=== PATIENT | female | born 1985 | race Hispanic/Latino ===

== ENCOUNTER 2017-03-11 01:30 | Emergency (ER) | payer SELFPAY | END 2017-03-11 02:10 | disposition left against medical advice (07) | LOC: ED 01:30 | DX: R06.02 Shortness of breath (principal); Z53.21 Procedure and treatment not carried out due to patient leaving prior to being seen by health care provider ==

== ENCOUNTER 2017-08-20 02:45 | Inpatient (IN) | payer MEDICARE ==
[2017-08-20] MEDS ORDERED: NACL 0.9% 500 ML 500 ML IV ONE (03:06)
[2017-08-20 03:47] LABS: Basophils # (Auto) 0.1 K/mm3 (0.0-0.1); Basophils % (Auto) 0.9 % (0.0-1.8); Eosinophils # (Auto) 0.2 K/mm3 (0.0-0.4); Eosinophils % (Auto) 2.6 % (0.0-4.3); Hematocrit 42.6 % (30.3-42.9); Hemoglobin 14.4 gm/dl (10.1-14.3); Lymphocytes # (Auto) 1.5 K/mm3 (1.2-5.4); Lymphocytes % (Auto) 19.4 % (13.4-35.0); Mean Corpuscular HGB Conc 34 % (30-34); Mean Corpuscular Hemoglobin 31 pg (28-32); Mean Corpuscular Volume 91 fl (79-97); Monocytes # (Auto) 0.7 K/mm3 (0.0-0.8); Monocytes % (Auto) 9.2 % (0.0-7.3); Platelet Count 160 K/mm3 (140-440); Red Blood Count 4.68 M/mm3 (3.65-5.03); Red Cell Distribution Width 13.7 % (13.2-15.2)
[2017-08-20 04:03] LABS: INR 0.89 (0.87-1.13)
[2017-08-20 04:04] LABS: Alanine Aminotransferase 13 units/L (7-56); Albumin 4.4 g/dL (3.9-5); BUN/Creatinine Ratio 20; Blood Urea Nitrogen 20 mg/dL (7-17); Calcium 8.8 mg/dL (8.4-10.2); Hemolysis Index 10
--- NOTE | 2017-08-20 04:44 | XRay Report ---
FINAL REPORT EXAM: XR CHEST 1V AP HISTORY: possible Sepsis TECHNIQUE: AP portable view(s) of the chest obtained. PRIORS: None. FINDINGS: No mediastinal shift. Cardiac silhouette is not enlarged. No pneumothorax, effusion, or focal pulmonary opacity identified. No acute skeletal findings. IMPRESSION: No acute pulmonary finding identified.
[2017-08-20 04:52] LABS: Bilirubin,Urine NEG (Negative); Blood,Urine NEG (Negative); Color,Urine Yellow (Yellow); Mucus,Urine FEW /HPF; Protein,Urine <15 mg/dL mg/dL (Negative); Urobilinogen,Urine < 2.0 mg/dL (<2.0); WBC,Urine < 1.0 /HPF (0.0-6.0)
[2017-08-20] MEDS ORDERED: ZOFRAN IV ONE (07:11)
[2017-08-20] MEDS ORDERED: DILAUDID IV ONE ×3 (07:11→09:22)
--- NOTE | 2017-08-20 07:13 | Emergency Department Report ---
ED Abdominal Pain HPI - General Chief Complaint: Fever Stated Complaint: ABD PAIN Time Seen by Provider: 08/20/17 07:08 Source: patient Mode of arrival: Ambulatory Limitations: No Limitations - History of Present Illness Initial Comments: is a 31-year-old female presents to emergency room with right lower quadrant pain and fever and chills 2 days. Patient is a kidney transplant that took place on May 27. Patient states the area where they transported the kidney is hurting and patient has noticed decreased urinary output. Patient states that she has been taking Tylenol for the fever which will respond patient states she noted a fever at home at 101.2 orally. Patient complains of nausea and vomiting that is not being controlled by Zofran. Patient also complains of dysuria and urinary frequency. Patient denies chest pain and shortness of breath. Patient states the pain is a 10 out of 10. Patient states the pain is worse with movement and palpation. Patient states the pain is better with rest. MD Complaint: abdominal pain -: Sudden Location: RLQ Radiation: none Migration to: no migration Severity: severe Severity scale (0 -10): 10 Quality: stabbing Consistency: constant Improves With: rest Worsens With: vomiting, movement Context: recent surgery/procedure Associated Symptoms: nausea, vomiting, fever, chills. denies: diarrhea, constipation, dysuria, hematemesis, hematochezia, melena, hematuria, anorexia, syncope Treatments Prior to Arrival: other (Tylenol) - Related Data LMP (females 10-50): 3 weeks Home Medications Medication Instructions Recorded Confirmed Last Taken Biotin 5,000 mcg PO BID 08/20/17 08/20/17 Unknown Glycopyrrolate [Robinul Forte] 2 mg PO DAILY 08/20/17 08/20/17 Unknown Multivit/Folic Acid/Vit K1 1 tab PO DAILY 08/20/17 08/20/17 Unknown [One-A-Day Women's 50 Plus Tab] Mycophenolate [Cellcept] 500 mg PO BID 08/20/17 08/20/17 Unknown Pantoprazole [Protonix TAB] 40 mg PO DAILY 08/20/17 08/20/17 Unknown Tacrolimus [Prograf] 2 mg PO BID 08/20/17 08/20/17 Unknown predniSONE [Deltasone] 5 mg PO QDAY 08/20/17 08/20/17 08/19/17 5 Allergies Allergy/AdvReac Type Severity Reaction Status Date / Time aspirin Allergy Diarrhea Verified 08/20/17 02:53 Bleach (Sodium Hypochlorite) Allergy Diarrhea Verified 08/20/17 02:53 Iodinated Contrast- Oral and Allergy Dizziness Verified 08/20/17 02:53 IV Dye ketorolac [From Toradol] Allergy Dizziness Verified 08/20/17 02:53 linezolid [From Zyvox] Allergy Angioedema Verified 08/20/17 02:53 vancomycin Allergy Anaphylaxis Verified 08/20/17 02:53 ED Review of Systems ROS: Stated complaint: ABD PAIN Other details as noted in HPI Constitutional: chills, fever, malaise Eyes: denies: eye pain, eye discharge, vision change ENT: denies: ear pain, throat pain Respiratory: denies: cough, shortness of breath, wheezing Cardiovascular: denies: chest pain, palpitations Endocrine: no symptoms reported Gastrointestinal: abdominal pain, nausea, vomiting. denies: diarrhea Genitourinary: urgency, dysuria. denies: discharge Musculoskeletal: denies: back pain, joint swelling, arthralgia Skin: denies: rash, lesions Neurological: denies: headache, weakness, paresthesias Psychiatric: denies: anxiety, depression Hematological/Lymphatic: denies: easy bleeding, easy bruising ED Past Medical Hx - Past Medical History Previous Medical History?: Yes Hx Renal Disease: Yes - Surgical History Past Surgical History?: Yes Additional Surgical History: kidney transplant 05/28/2015 - Family History Family history: hypertension - Social History Smoking Status: Never Smoker Substance Use Type: None - Medications Home Medications: Home Medications Medication Instructions Recorded Confirmed Last Taken Type Biotin 5,000 mcg PO BID 08/20/17 08/20/17 Unknown History Glycopyrrolate [Robinul Forte] 2 mg PO DAILY 08/20/17 08/20/17 Unknown History Multivit/Folic Acid/Vit K1 1 tab PO DAILY 08/20/17 08/20/17 Unknown History [One-A-Day Women's 50 Plus Tab] Mycophenolate [Cellcept] 500 mg PO BID 08/20/17 08/20/17 Unknown History Pantoprazole [Protonix TAB] 40 mg PO DAILY 08/20/17 08/20/17 Unknown History Tacrolimus [Prograf] 2 mg PO BID 08/20/17 08/20/17 Unknown History predniSONE [Deltasone] 5 mg PO QDAY 08/20/17 08/20/17 08/19/17 History 5 ED Physical Exam - General Limitations: No Limitations General appearance: alert, in no apparent distress - Head Head exam: Present: atraumatic, normocephalic - Eye Eye exam: Present: normal appearance - ENT ENT exam: Present: mucous membranes moist - Neck Neck exam: Present: normal inspection - Respiratory Respiratory exam: Present: normal lung sounds bilaterally. Absent: respiratory distress - Cardiovascular Cardiovascular Exam: Present: regular rate, normal rhythm. Absent: systolic murmur, diastolic murmur, rubs, gallop - GI/Abdominal GI/Abdominal exam: Present: soft, tenderness (right periumbilical and right lower quadrant tenderness), normal bowel sounds - Extremities Exam Extremities exam: Present: normal inspection - Back Exam Back exam: Present: normal inspection - Neurological Exam Neurological exam: Present: alert, oriented X3 - Psychiatric Psychiatric exam: Present: normal affect, normal mood - Skin Skin exam: Present: warm, dry, intact, normal color. Absent: rash ED Course Vital Signs 08/20/17 08/20/17 08/20/17 02:54 07:00 07:16 Temperature 97.9 F Pulse Rate 90 Respiratory 16 Rate Blood Pressure 155/90 141/89 123/57 Blood Pressure [Left] O2 Sat by Pulse 99 98 100 Oximetry 08/20/17 08/20/17 08/20/17 07:20 07:30 07:37 Temperature 97.8 F Pulse Rate 77 85 Respiratory 17 17 Rate Blood Pressure 134/59 Blood Pressure 141/89 [Left] O2 Sat by Pulse 99 100 95 Oximetry 08/20/17 08/20/17 08/20/17 07:53 08:00 08:16 Temperature Pulse Rate Respiratory Rate Blood Pressure 154/93 132/90 132/90 Blood Pressure [Left] O2 Sat by Pulse 81 L 94 98 Oximetry 08/20/17 08/20/17 08/20/17 08:30 08:56 09:00 Temperature Pulse Rate Respiratory Rate Blood Pressure 154/93 132/90 121/82 Blood Pressure [Left] O2 Sat by Pulse 95 96 Oximetry 08/20/17 08/20/17 08/20/17 09:09 09:16 09:30 Temperature Pulse Rate 77 Respiratory Rate Blood Pressure 121/82 121/82 Blood Pressure [Left] O2 Sat by Pulse 95 97 Oximetry 08/20/17 08/20/17 08/20/17 09:46 10:00 10:10 Temperature Pulse Rate Respiratory Rate Blood Pressure 121/82 120/74 120/74 Blood Pressure [Left] O2 Sat by Pulse 97 87 93 Oximetry 08/20/17 08/20/17 08/20/17 10:13 10:17 10:20 Temperature 97.9 F Pulse Rate 65 Respiratory Rate Blood Pressure 120/74 Blood Pressure [Left] O2 Sat by Pulse 95 98 Oximetry 08/20/17 08/20/17 08/20/17 10:36 10:40 11:01 Temperature Pulse Rate Respiratory Rate Blood Pressure 120/74 120/74 Blood Pressure [Left] O2 Sat by Pulse 97 97 91 Oximetry - Reevaluation(s) Reevaluation #1: Hospitalist contacted for admission. Hospitalist to assume care of the patient. Discussed plan of care with patient and patient agrees to admission and plan of care. Discussed all results with patient. Due to the fact the patient has intractable abdominal pain and we can find a source for fever, i will admit patient to the hospitalist service for further evaluation and treatment. 08/20/17 09:23 ED Medical Decision Making - Lab Data Result diagrams: 08/20/17 03:31 08/20/17 03:31 - Radiology Data Radiology results: report reviewed negative ct abd - Medical Decision Making Patient's 31-year-old female who presents to emergency room with complaints of abdominal pain and fever and chills. CT negative. Will admit patient for intractable abdominal pain and to identify the source of her fever. Will give patient a Rocephin injection due to the fact that she's had a long history of Escherichia coli UTIs. Will admit patient to the hospitalist service for further evaluation and treatment - Differential Diagnosis abd pain. uti. enteritis Critical care attestation.: If time is entered above; I have spent that time in minutes in the direct care of this critically ill patient, excluding procedure time. ED Disposition Clinical Impression: Dysuria, Intractable abdominal pain Abdominal pain Qualifiers: Abdominal location: right lower quadrant Qualified Code(s): R10.31 - Right lower quadrant pain Fever Qualifiers: Fever type: unspecified Qualified Code(s): R50.9 - Fever, unspecified UTI (urinary tract infection) Qualifiers: Urinary tract infection type: acute cystitis Hematuria presence: without hematuria Qualified Code(s): N30.00 - Acute cystitis without hematuria Disposition: OP ADMIT IP TO THIS HOSP Is pt being admited?: Yes Does the pt Need Aspirin: No Condition: Serious Time of Disposition: 09:17
[2017-08-20] MEDS ORDERED: BENADRYL ONE (07:23)
[2017-08-20] MEDS ORDERED: BENADRYL IV ONE (07:26)
--- NOTE | 2017-08-20 08:34 | Cat Scan Report ---
CT ABDOMEN PELVIS WITHOUT CONTRAST: HISTORY: abdominal pain. COMPARISON: none. TECHNIQUE: Helical CT in 1.25mm intervals without IV contrast. Sagittal and coronal reconstructions. FINDINGS: Lung bases: Normal. Liver: Normal. Biliary system: Cholecystectomy has been performed. No biliary dilatation. Pancreas: Normal. Spleen: The spleen is borderline in size measuring 13 cm in length. There is a 3.9 x 2.1 cm slightly hyperdense area in the superior spleen of uncertain etiology. Overall this has a chronic appearance. The remainder of the spleen is unremarkable. Kidneys/ureters/bladder: The kake left kidney is severely atrophic measuring 6 cm in length. The right kidney is not confidently identified which could represent surgical removal, agenesis or severe atrophy. There appears to be a renal transplant in the right side of the pelvis which appears unremarkable on noncontrast CT. The transplant kidney measures 11.9 cm in length. No focal renal lesion, hydronephrosis or perinephric fluid is detected. The ureters and bladder are unremarkable. Adrenal glands: Normal. Aorta: Normal. Intestines: Within normal limits given no oral contrast was administered. Gastric sleeve surgical changes are suspected, correlate with surgical history. Appendix: Normal. Pelvic viscera: The uterus and right adnexa are unremarkable. A 4.6 cm simple appearing left ovarian cyst is identified. Ascites: None. Adenopathy: None. Musculoskeletal: Normal. IMPRESSION: No acute inflammatory process identified. Borderline splenomegaly. Hyperdense area near the superior tip of the spleen of uncertain etiology, I. suspect a benign etiology. Chronic renal parenchymal disease. The renal transplant in the right pelvis is unremarkable noncontrast CT. Surgical changes as described. 4.6 cm left ovarian cyst.
[2017-08-20] MEDS ORDERED: NACL 0.9% 1000 ML 1,000 ML ONE (08:54)
[2017-08-20] MEDS ORDERED: NACL 0.9% 1000 ML 1,000 ML IV ONE (08:57)
[2017-08-20] MEDS ORDERED: ROCEPHIN/NS 1 GM/50 ML 1 GM/50 ML BAG IV ONE (09:20)
[2017-08-20] MEDS ORDERED: cefTRIAXone 1 GM in NACL 0.9% 20 ML IV NR (09:30)
[2017-08-20] MEDS ORDERED: Fluarix Quad 2017-2018(36 MOS+ IM ONE (12:43)
[2017-08-20 15:14] VITALS: BP 117/79
--- NOTE | 2017-08-20 16:14 | Discharge Summary ---
Providers - Providers Date of Admission: 08/20/17 09:26 Attending physician: JOSE F TOVAR MD Primary care physician: ROSEMARY HOLCOMB Hospitalization Condition: Serious Exam - Constitutional Vitals: Temp Pulse Resp BP Pulse Ox 97.9 F 59 L 14 117/79 90 08/20/17 10:13 08/20/17 15:00 08/20/17 15:00 08/20/17 15:00 08/20/17 11:24 Plan Follow up with: ROSEMARY HOLCOMB MD [Primary Care Provider] - 3-5 Days
[2017-08-20] MEDS ORDERED: BENADRYL PO PRN (17:16)
[2017-08-20] MEDS ORDERED: TYLENOL PO PRN (17:16)
[2017-08-20] MEDS ORDERED: PERCOCET 5/325 PO PRN (17:16)
[2017-08-20] MEDS ORDERED: ZOFRAN IV PRN (17:16)
[2017-08-20] MEDS ORDERED: SODIUM CHLORIDE FLUSH SYRINGE 10 ML IV PRN (17:16)
[2017-08-20] MEDS ORDERED: CELLCEPT PO SCH (22:00)
[2017-08-20] MEDS ORDERED: NON-FORMULARY (Biotin [Biotin] 5,000 MCG) PO SCH (22:00)
[2017-08-20] MEDS ORDERED: PROGRAF PO SCH (22:00)
[2017-08-20] MEDS ORDERED: SODIUM CHLORIDE FLUSH SYRINGE 10 ML IV SCH (22:00)
[2017-08-21] MEDS ORDERED: FOLIC ACID PO SCH (10:00)
[2017-08-21] MEDS ORDERED: ROBINUL PO SCH (10:00)
[2017-08-21] MEDS ORDERED: MULTIVIT PO SCH (10:00)
[2017-08-21] MEDS ORDERED: THERAGRAN Tab PO SCH (10:00)
[2017-08-21] MEDS ORDERED: PROTONIX PO SCH (10:00)
[2017-08-21] MEDS ORDERED: GLYCOPYRROLATE 2 MG PO SCH (10:00)
[2017-08-21] MEDS ORDERED: VIT K1 PO SCH (10:00)
[2017-08-21] MEDS ORDERED: DELTASONE PO SCH (10:00)
[2017-08-21] MEDS ORDERED: Fluarix Quad 2017-2018(36 MOS+ IM ONE (12:00)
== END 2017-08-20 21:30 | disposition left against medical advice (07) | DRG 690 ==
LOC: ED 02:45 → 3A 09:26
PROVIDERS: ADMIT Internal Medicine; ATTEND Internal Medicine
DX: N39.0 Urinary tract infection, site not specified (principal); Z94.0 Kidney transplant status; Z53.21 Procedure and treatment not carried out due to patient leaving prior to being seen by health care provider; Z82.49 Family history of ischemic heart disease and other diseases of the circulatory system
CPT/HCPCS: 36415; 71045; 74176; 80053; 81001; 82140; 82805; 84703; 85025; 85610; 86850; 86870; 86900; 86901; 87040; 87086; 90686; 93005; 93010; 96365; 96375; 96376; J0696; J1170; J1200; J2405; J7030; J7040; J7507

== ENCOUNTER 2019-05-25 01:08 | Emergency (ER) | payer MEDICARE ==
[2019-05-25 01:52] LABS: Basophils # (Auto) 0.1 K/mm3 (0.0-0.1); Basophils % (Auto) 1.2 % (0.0-1.8); Eosinophils # (Auto) 0.2 K/mm3 (0.0-0.4); Eosinophils % (Auto) 3.9 % (0.0-4.3); Hematocrit 37.9 % (30.3-42.9); Hemoglobin 12.8 gm/dl (10.1-14.3); Lymphocytes % (Auto) 20.8 % (13.4-35.0); Mean Corpuscular HGB Conc 34 % (30-34); Mean Corpuscular Volume 99 fl (79-97); Monocytes # (Auto) 0.4 K/mm3 (0.0-0.8); Monocytes % (Auto) 9.6 % (0.0-7.3); Platelet Count 158 K/mm3 (140-440); Red Blood Count 3.83 M/mm3 (3.65-5.03); Red Cell Distribution Width 15.3 % (13.2-15.2)
[2019-05-25 02:15] LABS: Albumin 4.7 g/dL (3.9-5); Calcium 8.5 mg/dL (8.4-10.2)
[2019-05-25 03:18] LABS: Bacteria,Urine 1+ /HPF (Negative); Bilirubin,Urine NEG (Negative); Blood,Urine NEG (Negative); Color,Urine Yellow (Yellow); Protein,Urine <15 mg/dL mg/dL (Negative); Urobilinogen,Urine < 2.0 mg/dL (<2.0); WBC,Urine < 1.0 /HPF (0.0-6.0)
[2019-05-25] MEDS ORDERED: SODIUM CHLORIDE 0.9% 1000 ML 1,000 ML IV ONE (03:48)
[2019-05-25] MEDS ORDERED: HYDROmorphone 1 MG/1 ML INJ IV ONE ×2 (04:01→05:43)
--- NOTE | 2019-05-25 04:01 | Emergency Department Report ---
ED Abdominal Pain HPI - General Chief Complaint: Abdominal Pain Stated Complaint: LOWER ABD PAIN, NAUSEA, Time Seen by Provider: 05/25/19 03:40 Source: patient Mode of arrival: Ambulatory Limitations: No Limitations - History of Present Illness Initial Comments: Patient is a 33-year-old female that presents emergency room with complaints of abdominal pain. Patient states her abdominal pain is her right lower and right upper quadrant. Patient states abdominal pain is a 6 out of 10. Patient states she is also had nausea vomiting. Pain states she is taken multiple doses Zofran. Patient denies fever and chills. Patient states she has a history of a kidney transplant in 2016. Patient denies urinary symptoms. Patient's last menstrual period was 2 years ago.. Patient states she does not ovulate. 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 MD Complaint: abdominal pain -: Sudden Location: RUQ, RLQ Radiation: R flank Severity scale (0 -10): 6 Quality: sharp Consistency: constant Improves With: rest Worsens With: movement Associated Symptoms: nausea, vomiting. denies: diarrhea, fever, chills, constipation, dysuria, hematemesis, hematochezia, melena, hematuria, syncope - Related Data Home Medications Medication Instructions Recorded Confirmed Last Taken Biotin [Biotin 5,000 rapdis] 5,000 mcg PO BID 08/20/17 08/20/17 Unknown Glycopyrrolate [Robinul Forte] 2 mg PO DAILY 08/20/17 08/20/17 Unknown Multivit/Folic Acid/Vit K1 1 tab PO DAILY 08/20/17 08/20/17 Unknown [One-A-Day Women's 50 Plus Tab] Mycophenolate [Cellcept] 500 mg PO BID 08/20/17 08/20/17 Unknown Pantoprazole [Protonix TAB] 40 mg PO DAILY 08/20/17 08/20/17 Unknown Tacrolimus [Prograf] 2 mg PO BID 08/20/17 08/20/17 Unknown predniSONE [Deltasone] 5 mg PO QDAY 08/20/17 08/20/17 08/19/17 5 Previous Rx's Medication Instructions Recorded Last Taken Type Ondansetron [Zofran Odt] 4 mg PO Q8HR PRN #30 tab.rapdis 05/25/19 Unknown Rx Allergies Allergy/AdvReac Type Severity Reaction Status Date / Time aspirin Allergy Diarrhea Verified 08/20/17 02:53 Bleach (Sodium Hypochlorite) Allergy Diarrhea Verified 08/20/17 02:53 Iodinated Contrast Media Allergy Dizziness Verified 08/20/17 02:53 ketorolac [From Toradol] Allergy Dizziness Verified 08/20/17 02:53 linezolid [From Zyvox] Allergy Angioedema Verified 08/20/17 02:53 vancomycin Allergy Anaphylaxis Verified 08/20/17 02:53 NSAIDS (Non-Steroidal AdvReac Unknown Verified 05/25/19 01:12 Anti-Inflamma ED Review of Systems ROS: Stated complaint: LOWER ABD PAIN, NAUSEA, AND CHILLS Other details as noted in HPI Constitutional: denies: chills, fever Eyes: denies: eye pain, eye discharge, vision change ENT: denies: ear pain, throat pain Respiratory: denies: cough, shortness of breath, wheezing Cardiovascular: denies: chest pain, palpitations Endocrine: no symptoms reported Gastrointestinal: abdominal pain, nausea, vomiting. denies: diarrhea Genitourinary: denies: urgency, dysuria, discharge Musculoskeletal: denies: back pain, joint swelling, arthralgia Skin: denies: rash, lesions Neurological: denies: headache, weakness, paresthesias Psychiatric: denies: anxiety, depression Hematological/Lymphatic: denies: easy bleeding, easy bruising ED Past Medical Hx - Past Medical History Previous Medical History?: Yes Hx Deep Vein Thrombosis: Yes (2012) Hx Renal Disease: Yes (kidney transplant- born with 1 kidney) Hx COPD: No Hx HIV: No - Surgical History Past Surgical History?: Yes Additional Surgical History: kidney transplant 05/28/2015. tonsils and adnoids removed, gastric sleeve, parathyroidectomy, - Family History Family history: no significant - Social History Smoking Status: Never Smoker Substance Use Type: None - Medications Home Medications: Home Medications Medication Instructions Recorded Confirmed Last Taken Type Biotin [Biotin 5,000 rapdis] 5,000 mcg PO BID 08/20/17 08/20/17 Unknown History Glycopyrrolate [Robinul Forte] 2 mg PO DAILY 08/20/17 08/20/17 Unknown History Multivit/Folic Acid/Vit K1 1 tab PO DAILY 08/20/17 08/20/17 Unknown History [One-A-Day Women's 50 Plus Tab] Mycophenolate [Cellcept] 500 mg PO BID 08/20/17 08/20/17 Unknown History Pantoprazole [Protonix TAB] 40 mg PO DAILY 08/20/17 08/20/17 Unknown History Tacrolimus [Prograf] 2 mg PO BID 08/20/17 08/20/17 Unknown History predniSONE [Deltasone] 5 mg PO QDAY 08/20/17 08/20/17 08/19/17 History 5 Ondansetron [Zofran Odt] 4 mg PO Q8HR PRN #30 tab.rapdis 05/25/19 Unknown Rx ED Physical Exam - General Limitations: No Limitations General appearance: alert, in no apparent distress - Head Head exam: Present: atraumatic, normocephalic - Eye Eye exam: Present: normal appearance - ENT ENT exam: Present: mucous membranes moist - Neck Neck exam: Present: normal inspection - Respiratory Respiratory exam: Present: normal lung sounds bilaterally. Absent: respiratory distress, wheezes, rales - Cardiovascular Cardiovascular Exam: Present: regular rate, normal rhythm. Absent: systolic murmur, diastolic murmur, rubs, gallop - GI/Abdominal GI/Abdominal exam: Present: soft, tenderness (Right upper and right lower quadrant tenderness.), normal bowel sounds. Absent: distended, guarding, rebound - Extremities Exam Extremities exam: Present: normal inspection - Back Exam Back exam: Present: normal inspection - Neurological Exam Neurological exam: Present: alert, oriented X3 - Psychiatric Psychiatric exam: Present: normal affect, normal mood - Skin Skin exam: Present: warm, dry, intact, normal color. Absent: rash ED Course Vital Signs 05/25/19 05/25/19 01:12 01:21 Temperature 98.1 F Pulse Rate 94 H Respiratory 18 18 Rate Blood Pressure 128/76 O2 Sat by Pulse 98 99 Oximetry - Reevaluation(s) Reevaluation #1: Patient is difficult stick due to her multiple IVs in the past. Patient will have a left EJ placed. See procedure notes. 05/25/19 04:15 Reevaluation #2: Patient states her pain is better. Patient denies nausea vomiting. 05/25/19 05:21 Reevaluation #3: Patient states the pain started to increase. Patient will be given another dose of Dilaudid. Patient denies nausea/vomiting. 05/25/19 05:39 Reevaluation #4: Patient states the pain is gone. Patient denies nausea vomiting. I discussed all results and clinical findings with patient. I discussed plan of care with patient. Patient agrees with plan of care. Patient is stable for discharge. Patient will be discharged home. Patient given discharge instruct ions. Patient voiced understanding of discharge instructions. 05/25/19 05:54 - EJ/Peripheral Line Neck L Time Out Performed: Yes Indications: nurses unable to establis Skin Cleansed in Sterile Fashion: Yes Size: 22 Dressing Placed: Tegaderm, tape Patient Tolerated Procedure: well, no complications ED Medical Decision Making - Lab Data Result diagrams: 05/25/19 01:40 05/25/19 01:40 - Radiology Data Radiology results: report reviewed CT ABDOMEN AND PELVIS WITHOUT CONTRAST INDICATION / CLINICAL INFORMATION: R.L.Q. abd pain x 2 days. Hx of kidney transplant in 2016.. TECHNIQUE: Axial CT images were obtained through the abdomen and pelvis without IV contrast. All CT scans at this location are performed using CT dose reduction for ALARA by means of automated exposure control. COMPARISON: CT dated 08/20/17 FINDINGS: LOWER CHEST: No significant abnormality. LIVER: No significant abnormality. GALLBLADDER: Surgically absent. BILE DUCTS: No significant abnormality. PANCREAS: No significant abnormality. SPLEEN: Small calcified area at the superior pole of the spleen is unchanged. ADRENALS: No significant abnormality. RIGHT KIDNEY and URETER: Absent or atrophic, unchanged. Right pelvic transplant kidney shows no acute abnormality. No hydronephrosis. No stones. LEFT KIDNEY and URETER: Atrophic, unchanged. STOMACH and SMALL BOWEL: Gastric stapling is unchanged. No small bowel abnormality. COLON: No significant abnormality. APPENDIX: No significant abnormality. PERITONEUM: No free fluid. No free air. No fluid collection. LYMPH NODES: No significant adenopathy. AORTA and ARTERIES: No significant abnormality. IVC and VEINS: No significant abnormality. URINARY BLADDER: No significant abnormality. REPRODUCTIVE ORGANS: Bilateral ovarian cysts which appear simple. Right ovarian cyst measures 4 cm. ADDITIONAL FINDINGS: Abdominal wall varices are unchanged. SKELETAL SYSTEM: No significant abnormality. IMPRESSION: 1. No inflammatory process or bowel obstruction. 2. Right lower quadrant renal transplant shows no acute abnormality. 3. Bilateral ovarian cysts. No routine follow-up is needed. - Medical Decision Making Patient is a 33-year-old female presents emergency room with complaints of abdominal pain and nausea vomiting. Patient responded well to treatment. Patient given IV fluids and Dilaudid and Zofran. Patient did not have any nausea or vomiting in the ER. Patient's clinical findings are consistent with gastroenteritis and nausea vomiting. Patient had a CT done and shows no acute findings. Patient found to have bilateral ovarian cyst. 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 Patient instructed to take Tylenol as needed. Patient given a prescription for Zofran. Patient's labs are unremarkable. - Differential Diagnosis Gastroenteritis, pyelonephritis, appendicitis, gallbladder pain Critical care attestation.: If time is entered above; I have spent that time in minutes in the direct care of this critically ill patient, excluding procedure time. ED Disposition Clinical Impression: Gastroenteritis, Dehydration Abdominal pain Qualifiers: Abdominal location: right lower quadrant Qualified Code(s): R10.31 - Right lower quadrant pain Nausea & vomiting Qualifiers: Vomiting type: unspecified Vomiting Intractability: non-intractable Qualified Code(s): R11.2 - Nausea with vomiting, unspecified Disposition: TO HOME OR SELFCARE Is pt being admited?: No Does the pt Need Aspirin: No Condition: Stable Instructions: Traveler's Diarrhea (ED), Gastroenteritis (ED), Acute Nausea and Vomiting (ED), Abdominal Pain (ED) Additional Instructions: Patient to follow-up with primary care in 2 to 3 days. Patient to follow-up w ith [facility] al[facility]man in 2 to 3 days. Patient to rest. Patient to increase water. Patient to eat a brat diet. patient to take Tylenol as needed for pain. Patient to take meds as directed. Patient to return to the ER if condition worsens, changes or new symptoms arise. Prescriptions: Ondansetron [Zofran Odt] 4 mg PO Q8HR PRN #30 tab.rapdis PRN Reason: Nausea And Vomiting Referrals: PRIMARY CARE,MD [Primary Care Provider] - 2-3 Days Time of Disposition: 05:23
[2019-05-25] MEDS ORDERED: ONDANSETRON 4 MG/2 ML INJ IV ONE (04:16)
[2019-05-25] MEDS ORDERED: diphenhydrAMINE 50 MG/ML VIAL IV ONE ×2 (04:49→05:43)
--- NOTE | 2019-05-25 04:50 | Cat Scan Report ---
CT ABDOMEN AND PELVIS WITHOUT CONTRAST INDICATION / CLINICAL INFORMATION: R.L.Q. abd pain x 2 days. Hx of kidney transplant in 2016.. TECHNIQUE: Axial CT images were obtained through the abdomen and pelvis without IV contrast. All CT scans at [facility] location are performed using CT dose reduction for ALARA by means of automated exposure control. COMPARISON: CT dated 08/20/17 FINDINGS: LOWER CHEST: No significant abnormality. LIVER: No significant abnormality. GALLBLADDER: Surgically absent. BILE DUCTS: No significant abnormality. PANCREAS: No significant abnormality. SPLEEN: Small calcified area at the superior pole of the spleen is unchanged. ADRENALS: No significant abnormality. RIGHT KIDNEY and URETER: Absent or atrophic, unchanged. Right pelvic transplant kidney shows no acute abnormality. No hydronephrosis. No stones. LEFT KIDNEY and URETER: Atrophic, unchanged. STOMACH and SMALL BOWEL: Gastric stapling is unchanged. No small bowel abnormality. COLON: No significant abnormality. APPENDIX: No significant abnormality. PERITONEUM: No free fluid. No free air. No fluid collection. LYMPH NODES: No significant adenopathy. AORTA and ARTERIES: No significant abnormality. IVC and VEINS: No significant abnormality. URINARY BLADDER: No significant abnormality. REPRODUCTIVE ORGANS: Bilateral ovarian cysts which appear simple. Right ovarian cyst measures 4 cm. ADDITIONAL FINDINGS: Abdominal wall varices are unchanged. SKELETAL SYSTEM: No significant abnormality. IMPRESSION: 1. No inflammatory process or bowel obstruction. 2. Right lower quadrant renal transplant shows no acute abnormality. 3. Bilateral ovarian cysts. No routine follow-up is needed. Signer Name: Keyonna Malagon MD Signed: 05/25/2019 4:45 AM Workstation Name: [id number]
[2019-05-25 06:41] VITALS: BP 115/85
== END 2019-05-25 06:40 | disposition home or self-care (01) ==
LOC: ED 01:08
DX: K52.9 Noninfective gastroenteritis and colitis, unspecified (principal)
CPT/HCPCS: 36415; 74176; 80053; 81001; 85025; 96361; 96374; 96375; 96376; 99284; J1170; J1200; J2405; J7030

== ENCOUNTER 2021-04-28 03:58 | Emergency (ER) | payer MEDICARE ==
[2021-04-28] MEDS ORDERED: PROCHLORPERAZINE EDISYLATE 10 MG/2 ML VIAL IV ONE (05:13)
[2021-04-28] MEDS ORDERED: MORPHINE 4 MG/1 ML INJ IV ONE (05:13)
[2021-04-28] MEDS ORDERED: SODIUM CHLORIDE 0.9% 1000 ML 1,000 ML IV ONE (05:15)
--- NOTE | 2021-04-28 05:59 | Emergency Department Report ---
<KYLE MCCURDY - Last Filed: 04/28/21 05:55> ED Abdominal Pain HPI - General Chief Complaint: Abdominal Pain Stated Complaint: ABD PAIN,NAUSEA-KIDNEY TX PT PUI?: No Source: patient Mode of arrival: Ambulatory Limitations: No Limitations - History of Present Illness Initial Comments: Patient is a 35-year-old female with a history of DVT and frequent recurrent urinary tract infections and s/p kidney transplant in 2016 presents to the ED with complaint of acute onset persistent right lower quadrant abdominal pain with nausea for the last 2 days. Patient states that she has been taking previously prescribed Zofran 4 mg ODT tablets for nausea. Patient states that the pain in the right lower quadrant area is constant and persistent and gets worse with movement as well as when having a bowel movement or voiding urine. Patient denies fever, chills, vomiting, diarrhea, dizziness, syncope, chest pain, shortness of breath, vaginal bleeding, vaginal discharge, change in vision, back pain or traumatic injury and heavy lifting. MD Complaint: abdominal pain (Right lower quadrant pain), other (Nausea) -: Sudden, days(s) (2) Location: RLQ Radiation: RLQ Migration to: no migration Severity: severe Severity scale (0 -10): 7 Quality: aching, sharp Consistency: constant Improves With: nothing Worsens With: movement Associated Symptoms: denies other symptoms, nausea, anorexia. denies: vomiting, diarrhea, fever, chills, constipation, dysuria, hematemesis, hematochezia, melena, hematuria, syncope - Related Data Home Medications Medication Instructions Recorded Confirmed Last Taken Biotin [Biotin 5,000 rapdis] 5,000 mcg PO BID 08/20/17 08/20/17 Unknown Glycopyrrolate [Robinul Forte] 2 mg PO DAILY 08/20/17 08/20/17 Unknown Multivit/Folic Acid/Vit K1 1 tab PO DAILY 08/20/17 08/20/17 Unknown [One-A-Day Women's 50 Plus Tab] Mycophenolate [Cellcept] 500 mg PO BID 08/20/17 08/20/17 Unknown Pantoprazole [Protonix TAB] 40 mg PO DAILY 08/20/17 08/20/17 Unknown Tacrolimus [Prograf] 2 mg PO BID 08/20/17 08/20/17 Unknown predniSONE [Deltasone] 5 mg PO QDAY 08/20/17 08/20/17 08/19/17 5 Previous Rx's Medication Instructions Recorded Last Taken Type Ondansetron [Zofran Odt] 4 mg PO Q8HR PRN #30 tab.rapdis 05/25/19 Unknown Rx Ciprofloxacin HCl [Ciprofloxacin 500 mg PO BID 7 Days #14 tab 07/01/19 Unknown Rx TAB] Dicyclomine [Bentyl] 20 mg PO Q12H PRN #12 tablet 04/28/21 Unknown Rx Ondansetron [Zofran Odt] 4 mg PO Q8HR PRN #12 tab.rapdis 04/28/21 Unknown Rx Allergies Allergy/AdvReac Type Severity Reaction Status Date / Time aspirin Allergy Diarrhea Verified 07/01/19 02:39 Bleach (Sodium Hypochlorite) Allergy Diarrhea Verified 07/01/19 02:39 Iodinated Contrast Media Allergy Dizziness Verified 07/01/19 02:39 ketorolac [From Toradol] Allergy Dizziness Verified 07/01/19 02:39 linezolid [From Zyvox] Allergy Angioedema Verified 07/01/19 02:39 vancomycin Allergy Anaphylaxis Verified 07/01/19 02:39 NSAIDS (Non-Steroidal AdvReac Unknown Verified 07/01/19 02:39 Anti-Inflamma ED Review of Systems Constitutional: denies: chills, fever Eyes: denies: eye pain, eye discharge, vision change ENT: denies: ear pain, throat pain Respiratory: denies: cough, shortness of breath, wheezing Cardiovascular: denies: chest pain, palpitations Endocrine: no symptoms reported Gastrointestinal: abdominal pain (RLQ Pain), nausea. denies: vomiting, diarrhea, constipation, hematemesis, hematochezia Genitourinary: denies: urgency, dysuria, discharge Musculoskeletal: denies: back pain, joint swelling, arthralgia Skin: denies: rash, lesions Neurological: denies: headache, weakness, paresthesias Psychiatric: denies: anxiety, depression Hematological/Lymphatic: denies: easy bleeding, easy bruising ED Past Medical Hx - Past Medical History Previous Medical History?: Yes Hx Deep Vein Thrombosis: Yes (2012) Hx Renal Disease: Yes (kidney transplant- born with 1 kidney) Hx COPD: No Hx HIV: No - Surgical History Past Surgical History?: Yes Additional Surgical History: kidney transplant 05/28/2015. tonsils and adnoids removed, gastric sleeve, parathyroidectomy, - Social History Smoking Status: Never Smoker Substance Use Type: Alcohol - Medications Home Medications: Home Medications Medication Instructions Recorded Confirmed Last Taken Type Biotin [Biotin 5,000 rapdis] 5,000 mcg PO BID 08/20/17 08/20/17 Unknown History Glycopyrrolate [Robinul Forte] 2 mg PO DAILY 08/20/17 08/20/17 Unknown History Multivit/Folic Acid/Vit K1 1 tab PO DAILY 08/20/17 08/20/17 Unknown History [One-A-Day Women's 50 Plus Tab] Mycophenolate [Cellcept] 500 mg PO BID 08/20/17 08/20/17 Unknown History Pantoprazole [Protonix TAB] 40 mg PO DAILY 08/20/17 08/20/17 Unknown History Tacrolimus [Prograf] 2 mg PO BID 08/20/17 08/20/17 Unknown History predniSONE [Deltasone] 5 mg PO QDAY 08/20/17 08/20/17 08/19/17 History 5 Ondansetron [Zofran Odt] 4 mg PO Q8HR PRN #30 tab.rapdis 05/25/19 Unknown Rx Ciprofloxacin HCl [Ciprofloxacin 500 mg PO BID 7 Days #14 tab 07/01/19 Unknown Rx TAB] Dicyclomine [Bentyl] 20 mg PO Q12H PRN #12 tablet 04/28/21 Unknown Rx Ondansetron [Zofran Odt] 4 mg PO Q8HR PRN #12 tab.rapdis 04/28/21 Unknown Rx ED Physical Exam - General Limitations: No Limitations General appearance: alert, in no apparent distress - Head Head exam: Present: atraumatic, normocephalic, normal inspection - Eye Eye exam: Present: normal appearance, PERRL, EOMI Pupils: Present: normal accommodation - ENT ENT exam: Present: normal exam, normal orophraynx, mucous membranes moist, TM's normal bilaterally, normal external ear exam - Neck Neck exam: Present: normal inspection, full ROM. Absent: tenderness - Respiratory Respiratory exam: Present: normal lung sounds bilaterally. Absent: respiratory distress, wheezes, rales, rhonchi, chest wall tenderness, accessory muscle use, decreased breath sounds, other - Cardiovascular Cardiovascular Exam: Present: regular rate, normal rhythm, normal heart sounds. Absent: systolic murmur, diastolic murmur, rubs, gallop - GI/Abdominal GI/Abdominal exam: Present: soft, tenderness (Palpable RLQ tenderness), normal bowel sounds. Absent: guarding, rebound, hyperactive bowel sounds, hypoactive bowel sounds - Extremities Exam Extremities exam: Present: normal inspection, full ROM, normal capillary refill - Back Exam Back exam: Present: normal inspection, full ROM. Absent: tenderness, CVA tenderness (R), CVA tenderness (L), muscle spasm, paraspinal tenderness, vertebral tenderness - Neurological Exam Neurological exam: Present: alert, oriented X3, CN II-XII intact, normal gait, reflexes normal - Psychiatric Psychiatric exam: Present: normal affect, normal mood - Skin Skin exam: Present: warm, dry, intact, normal color. Absent: rash ED Medical Decision Making - Medical Decision Making This is a 35-year-old female with a history of DVT and frequent recurrent urinary tract infections and s/p kidney transplant in 2016 presents to the ED with complaint of acute onset persistent right lower quadrant abdominal pain with nausea for the last 2 days. Patient states that she has been taking previously prescribed Zofran 4 mg ODT tablets for nausea. Patient states that the pain in the right lower quadrant area is constant and persistent and gets worse with movement as well as when having a bowel movement or voiding urine. In the ED, patient is alert and oriented x3 and is not in any distress. Labs were drawn and abdomen pelvis CT scan without contrast was ordered. Patient was treated for pain in the ED and also given normal saline 1 L IV bolus x1. Patient care was transferred to Mr. Lazaro Richmond [employer] PA[employer] at shift change. Initial review all lab test results and imaging reports and disposition the patient accordingly. - Differential Diagnosis Kidney stone; UTI; appendicitis; ovarian cyst; ; ED Disposition Clinical Impression: Acute abdominal pain in right lower quadrant Disposition: 01 HOME / SELF CARE / HOMELESS Condition: Stable Instructions: Abdominal Pain, Adult, [id number], Abdominal Pain (ED) Additional Instructions: Follow-up with a primary care doctor in 3-5 days or if symptoms worsen and continue return to emergency room as soon as possible. Prescriptions: Dicyclomine [Bentyl] 20 mg PO Q12H PRN #12 tablet PRN Reason: abdominal pain Ondansetron [Zofran Odt] 4 mg PO Q8HR PRN #12 tab.rapdis PRN Reason: Nausea Referrals: PRIMARY CARE, [Primary Care Provider] - 3-5 Days VERONICA GONSALES MD [Staff Physician] - 3-5 Days Forms: Work/School Release Form(ED) Time of Disposition: 06:01 Print Language: BRITISH <LAZARO RICHMOND - Last Filed: 04/28/21 12:23> ED Review of Systems ROS: Stated complaint: ABD PAIN,NAUSEA-KIDNEY TX PT Other details as noted in HPI ED Course Vital Signs 04/28/21 04/28/21 04:07 11:14 Temperature 97.6 F 98.2 F Pulse Rate 80 71 Respiratory 14 18 Rate Blood Pressure 131/73 Blood Pressure 130/81 [Right] O2 Sat by Pulse 100 98 Oximetry - Reevaluation(s) Reevaluation #1: 04/28/21 09:52 Patient is stable. Vital signs are stable. Pain is under control. ED Medical Decision Making - Lab Data Result diagrams: 04/28/21 06:41 04/28/21 06:41 Lab Results 04/28/21 04/28/21 04/28/21 Range/Units 06:41 06:41 06:41 WBC 3.8 L (4.5-11.0) K/mm3 RBC 4.02 (3.65-5.03) M/mm3 Hgb 13.3 (10.1-14.3) gm/dl Hct 39.4 (30.3-42.9) % MCV 98 H (79-97) fl MCH 33 H (28-32) pg MCHC 34 (30-34) % RDW 14.5 (13.2-15.2) % Plt Count 135 L (140-440) K/mm3 Lymph % (Auto) 18.9 (13.4-35.0) % [place] % (Auto) 10.3 H (0.0-7.3) % Eos % (Auto) 5.0 H (0.0-4.3) % Baso % (Auto) 0.5 (0.0-1.8) % Lymph # (Auto) 0.7 L (1.2-5.4) K/mm3 [place] # (Auto) 0.4 (0.0-0.8) K/mm3 Eos # (Auto) 0.2 (0.0-0.4) K/mm3 Baso # (Auto) 0.0 (0.0-0.1) K/mm3 Seg Neutrophils % 65.3 (40.0-70.0) % Seg Neutrophils # 2.5 (1.8-7.7) K/mm3 Sodium 137 (137-145) mmol/L Potassium 4.3 (3.6-5.0) mmol/L Chloride 103.3 (98-107) mmol/L Carbon Dioxide 18 L (22-30) mmol/L Anion Gap 20 mmol/L BUN 17 (7-17) mg/dL Creatinine 1.3 H (0.6-1.2) mg/dL Estimated GFR 46 ml/min BUN/Creatinine Ratio 13 % Glucose 100 (65-100) mg/dL Calcium 9.5 (8.4-10.2) mg/dL Total Bilirubin 0.70 (0.1-1.2) mg/dL AST 11 (5-40) units/L ALT < 5 L (7-56) units/L Alkaline Phosphatase 65 (35-129) units/L Total Protein 7.7 (6.3-8.2) g/dL Albumin 4.9 (3.9-5) g/dL Albumin/Globulin Ratio 1.8 % Lipase 30 (13-60) units/L HCG, Qual Negative (Negative) Urine Color (Yellow) Urine Turbidity (Clear) Urine pH (5.0-7.0) Ur Specific [place] (1.003-1.030) Urine Protein (Negative) mg/dL Urine Glucose (UA) (Negative) mg/dL Urine Ketones (Negative) mg/dL Urine Blood (Negative) Urine Nitrite (Negative) Urine Bilirubin (Negative) Urine Urobilinogen (<2.0) mg/dL Ur Leukocyte Esterase (Negative) Urine WBC (Auto) (0.0-6.0) /HPF Urine RBC (Auto) (0.0-6.0) /HPF 04/28/21 Range/Units 07:27 WBC (4.5-11.0) K/mm3 RBC (3.65-5.03) M/mm3 Hgb (10.1-14.3) gm/dl Hct (30.3-42.9) % MCV (79-97) fl MCH (28-32) pg MCHC (30-34) % RDW (13.2-15.2) % Plt Count (140-440) K/mm3 Lymph % (Auto) (13.4-35.0) % [place] % (Auto) (0.0-7.3) % Eos % (Auto) (0.0-4.3) % Baso % (Auto) (0.0-1.8) % Lymph # (Auto) (1.2-5.4) K/mm3 [place] # (Auto) (0.0-0.8) K/mm3 Eos # (Auto) (0.0-0.4) K/mm3 Baso # (Auto) (0.0-0.1) K/mm3 Seg Neutrophils % (40.0-70.0) % Seg Neutrophils # (1.8-7.7) K/mm3 Sodium (137-145) mmol/L Potassium (3.6-5.0) mmol/L Chloride (98-107) mmol/L Carbon Dioxide (22-30) mmol/L Anion Gap mmol/L BUN (7-17) mg/dL Creatinine (0.6-1.2) mg/dL Estimated GFR ml/min BUN/Creatinine Ratio % Glucose (65-100) mg/dL Calcium (8.4-10.2) mg/dL Total Bilirubin (0.1-1.2) mg/dL AST (5-40) units/L ALT (7-56) units/L Alkaline Phosphatase (35-129) units/L Total Protein (6.3-8.2) g/dL Albumin (3.9-5) g/dL Albumin/Globulin Ratio % Lipase (13-60) units/L HCG, Qual (Negative) Urine Color Yellow (Yellow) Urine Turbidity Clear (Clear) Urine pH 5.0 (5.0-7.0) Ur Specific [place] 1.018 (1.003-1.030) Urine Protein <15 mg/dl (Negative) mg/dL Urine Glucose (UA) Neg (Negative) mg/dL Urine Ketones Neg (Negative) mg/dL Urine Blood Neg (Negative) Urine Nitrite Neg (Negative) Urine Bilirubin Neg (Negative) Urine Urobilinogen < 2.0 (<2.0) mg/dL Ur Leukocyte Esterase Neg (Negative) Urine WBC (Auto) 1.0 (0.0-6.0) /HPF Urine RBC (Auto) 4.0 (0.0-6.0) /HPF - Radiology Data [facility] [address] [place] [address] Cat Scan Report Signed Patient: CHAS KILPATRICK MR#: [id number] : 1985 Acct:[id number] Age/Sex: 35 / F ADM Date: 04/28/21 Loc: ED Attending Dr: Ordering Physician: LAZARO RICHMOND NP Date of Service: 04/28/21 Procedure(s): CT abdomen pelvis wo con Accession Number(s): [id number] cc: LAZARO RICHMOND NP CT ABDOMEN AND PELVIS WITHOUT CONTRAST INDICATION / CLINICAL INFORMATION: RLQ pain. Patient is allergic to contrast. TECHNIQUE: Axial CT images were obtained through the abdomen and pelvis without IV contrast. All CT scans at this location are performed using CT dose reduction for ALARA by means of automated exposure control. COMPARISON: CT abdomen and pelvis without contrast dated 05/25/2019. FINDINGS: LOWER CHEST: No significant abnormality. LIVER: No significant abnormality. GALLBLADDER: Surgically absent. BILE DUCTS: No significant abnormality. PANCREAS: No significant abnormality. SPLEEN: No significant abnormality. ADRENALS: No significant abnormality. RIGHT KIDNEY/URETER: The [place] right kidney is absent/atrophic. A right pelvic transplant kidney appears unremarkable. LEFT KIDNEY/URETER: Severe left renal atrophy without acute findings. STOMACH/SMALL BOWEL: Expected gastric bypass changes without acute findings. COLON: No significant abnormality. APPENDIX: No significant abnormality. PERITONEUM: No free fluid. No free air. No fluid collection. LYMPH NODES: No significant adenopathy. VASCULATURE: No significant abnormality. URINARY BLADDER: No significant abnormality. REPRODUCTIVE ORGANS: No significant abnormality. ADDITIONAL FINDINGS: None. BONES: No significant abnormality IMPRESSION: 1. No acute findings to explain the patient's right lower quadrant pain. 2. No significant interval changes from the 05/25/2019 CT. Signer Name: Prasanth Jenkins MD Signed: 04/28/2021 9:41 AM Workstation Name: [id number] Transcribed By: [place] Dictated By: Prasanth Jenkins MD Electronically Authenticated By: Prasanth Jenkins MD Signed Date/Time: 04/28/21 0941 DD/ 0938 TD/TT: - Medical Decision Making This is a 35-year-old female that presents with abdominal pain. Patient is stable and was originally seen by previous PA Kyle was signed to me for pending labs and CT results. Labs obtained. UA obtained. CT of abdomen obtained and dictated by the radiologist. Patient is notified of the report with no questions noted by the patient. Vital signs are stable prior to discharge. Patient received medical treatment in the ED which patient stated symptoms has resovled and subsided. Was instructed note to operate any machinery due to possible drowsiness and stated someone will drive the patient home. A by mouth challenge has been obtained and patient tolerated well with no nausea vomiting. Patient was notified of strict precatuions of appendictis symptoms and to return to the ED if symptoms occurs as soon as possible. Patient was also instructed to Follow-up with a primary care doctor in 3-5 days or if symptoms worsen and continue return to emergency room as soon as possible. At time of discharge, the patient does not seem toxic or ill in appearance. No acute signs of distress noted. Patient agrees to discharge treatment plan of care. No further questions noted by the patient. Critical care attestation.: If time is entered above; I have spent that time in minutes in the direct care of this critically ill patient, excluding procedure time. ED Disposition Is pt being admited?: No Does the pt Need Aspirin: No Time of Disposition: 11:01
[2021-04-28 07:27] LABS: Basophils % (Auto) 0.5 % (0.0-1.8); Eosinophils # (Auto) 0.2 K/mm3 (0.0-0.4); Hematocrit 39.4 % (30.3-42.9); Hemoglobin 13.3 gm/dl (10.1-14.3); Lymphocytes # (Auto) 0.7 K/mm3 (1.2-5.4); Lymphocytes % (Auto) 18.9 % (13.4-35.0); Mean Corpuscular HGB Conc 34 % (30-34); Mean Corpuscular Volume 98 fl (79-97); Monocytes # (Auto) 0.4 K/mm3 (0.0-0.8); Monocytes % (Auto) 10.3 % (0.0-7.3); Platelet Count 135 K/mm3 (140-440); Red Blood Count 4.02 M/mm3 (3.65-5.03); Red Cell Distribution Width 14.5 % (13.2-15.2)
[2021-04-28 07:41] LABS: Alanine Aminotransferase < 5 units/L (7-56); Albumin 4.9 g/dL (3.9-5); BUN/Creatinine Ratio 13; Blood Urea Nitrogen 17 mg/dL (7-17); Calcium 9.5 mg/dL (8.4-10.2); Hemolysis Index 136
[2021-04-28] MEDS ORDERED: MORPHINE 4 MG/1 ML INJ IV SCH (08:30)
[2021-04-28] MEDS ORDERED: PROCHLORPERAZINE EDISYLATE 10 MG/2 ML VIAL IV SCH (08:30)
[2021-04-28] MEDS ORDERED: diphenhydrAMINE 50 MG/ML VIAL IV ONE (08:56)
--- NOTE | 2021-04-28 09:46 | Cat Scan Report ---
CT ABDOMEN AND PELVIS WITHOUT CONTRAST INDICATION / CLINICAL INFORMATION: RLQ pain. Patient is allergic to contrast. TECHNIQUE: Axial CT images were obtained through the abdomen and pelvis without IV contrast. All CT scans at [facility] location are performed using CT dose reduction for ALARA by means of automated exposure control. COMPARISON: CT abdomen and pelvis without contrast dated 05/25/2019. FINDINGS: LOWER CHEST: No significant abnormality. LIVER: No significant abnormality. GALLBLADDER: Surgically absent. BILE DUCTS: No significant abnormality. PANCREAS: No significant abnormality. SPLEEN: No significant abnormality. ADRENALS: No significant abnormality. RIGHT KIDNEY/URETER: The [place] right kidney is absent/atrophic. A right pelvic transplant kidney sanjay ears unremarkable. LEFT KIDNEY/URETER: Severe left renal atrophy without acute findings. STOMACH/SMALL BOWEL: Expected gastric bypass changes without acute findings. COLON: No significant abnormality. APPENDIX: No significant abnormality. PERITONEUM: No free fluid. No free air. No fluid collection. LYMPH NODES: No significant adenopathy. VASCULATURE: No significant abnormality. URINARY BLADDER: No significant abnormality. REPRODUCTIVE ORGANS: No significant abnormality. ADDITIONAL FINDINGS: None. BONES: No significant abnormality IMPRESSION: 1. No acute findings to explain the patient's right lower quadrant pain. 2. No significant interval changes from the 05/25/2019 CT. Signer Name: Prasanth Jenkins MD Signed: 04/28/2021 9:41 AM Workstation Name: [id number]
[2021-04-28 10:39] LABS: Bilirubin,Urine NEG (Negative); Blood,Urine NEG (Negative); Color,Urine Yellow (Yellow); Protein,Urine <15 mg/dL mg/dL (Negative); Urobilinogen,Urine < 2.0 mg/dL (<2.0)
[2021-04-28 11:16] VITALS: BP 130/81
== END 2021-04-28 11:16 | disposition home or self-care (01) ==
LOC: ED 03:58
DX: R10.31 Right lower quadrant pain (principal); F10.20 Alcohol dependence, uncomplicated
CPT/HCPCS: 36415; 74176; 80053; 81001; 83690; 84703; 85025; 96361; 96374; 99284; J0780; J1200; J2270; J7030; Q0162